=== PATIENT | female | born 1955 | race Two or more races ===

== ENCOUNTER 2021-05-07 10:43 | Outpatient (CLI) | payer OTHER | END 2021-05-07 10:44 | disposition home or self-care (01) | LOC: NUCLEAR 10:43 | PROVIDERS: ATTEND Internal Medicine Cardiovascular Disease | DX: I87.2 Venous insufficiency (chronic) (peripheral) (principal) ==

== ENCOUNTER 2021-05-12 07:40 | Outpatient (CLI) | payer OTHER | END 2021-05-12 07:47 | disposition home or self-care (01) | LOC: RAD 07:40 | PROVIDERS: ATTEND Internal Medicine Cardiovascular Disease | DX: M12.9 Arthropathy, unspecified (principal) ==